=== PATIENT | male | born 1970 | race Caucasian/White ===

== ENCOUNTER 2019-03-19 09:38 | Inpatient (IN) | payer OTHER ==
[2019-03-19 10:42] VITALS: BMI 27.7
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
[2019-03-19] MEDS ORDERED: hydrOXYzine PAMOATE 25 MG CAPSULE (FP) PO PRN (12:10)
[2019-03-19] MEDS ORDERED: MENTHOL/PHENOL 1 EACH UD MM PRN (12:10)
[2019-03-19] MEDS ORDERED: MAG HYDROX/AL HYDROX/SIMETH 30 ML UNIT-DOSE CUP PO PRN (12:10)
[2019-03-19] MEDS ORDERED: MELATONIN 5 MG TABLETS PO PRN (12:10)
[2019-03-19] MEDS ORDERED: ACETAMINOPHEN 325 MG TABLET (FP) PO PRN (12:10)
[2019-03-19] MEDS ORDERED: MAGNESIUM HYDROX 2400MG/30ML ORAL SUSPENSION 30 ML CUP PO PRN (12:10)
[2019-03-19] MEDS ORDERED: MAGNESIUM CITRATE 300 ML BOTTLE PO PRN (12:10)
[2019-03-19] MEDS ORDERED: IBUPROFEN 400 MG TABLET (FP) PO PRN (12:10)
[2019-03-19] MEDS ORDERED: ONDANSETRON *ODT* 4 MG TABLET SL PRN (12:10)
[2019-03-19] MEDS ORDERED: P-EPHED 60MG/TRIPROLIDI 2.5MG TABLET PO PRN (12:10)
[2019-03-19] MEDS ORDERED: DICYCLOMINE HCL 10 MG CAPSULE PO PRN (12:10)
[2019-03-19] MEDS ORDERED: ALBUTEROL SO4 8 GM HFA INHALER IH PRN (12:12)
[2019-03-19] MEDS ORDERED: chlordiazePOXIDE HCL 25 MG CAPSULE PO ONE (12:55)
--- NOTE | 2019-03-19 13:00 | EKG ---
Test Reason : Blood Pressure : / mmHG Vent. Rate : 086 BPM Atrial Rate : 086 BPM P-R Int : 156 ms QRS Dur : 076 ms QT Int : 384 ms P-R-T Axes : 054 034 035 degrees QTc Int : 459 ms NORMAL SINUS RHYTHM NORMAL ECG NO PREVIOUS ECGS AVAILABLE Confirmed by CUONG BURTON, ANH ([id number]) on 03/19/2019 1:00:26 PM Referred By: Confirmed By:ANH HUTCHINS MD
[2019-03-19] MEDS: chlordiazePOXIDE HCL 25 MG CAPSULE PO PRN (15:14)
[2019-03-19] MEDS: chlordiazePOXIDE HCL 25 MG CAPSULE PO SCH ×2 (17:16→22:14)
[2019-03-19 17:34] LABS: HEMATOCRIT 46.3 % (35.4-49); HEMOGLOBIN 15.3 GM/dL (11.7-16.9); MCH 29.7 pg (25.7-33.7); MEAN CELL VOLUME 89.8 fl (80-96); MEAN PLT VOLUME 8.2 fl (7.5-11.1); PLATELET COUNT 308 K/MM3 (134-434); RBC 5.16 M/mm3 (4.00-5.60); RDW 14.4 % (11.9-15.9); WHITE BLOOD COUNT 7.7 K/mm3 (4.0-10.0)
[2019-03-19 17:43] LABS: ALBUMIN 4.2 g/dl (3.4-5.0); BILIRUBIN,TOTAL 0.4 mg/dL (0.2-1); CALCIUM 9.2 mg/dL (8.5-10.1); CREATININE 1.1 mg/dL (0.55-1.3); TOT PROT 7.8 g/dl (6.4-8.2)
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
[2019-03-19] MEDS ORDERED: BUDESONIDE/FORMETEROL FUMARATE 160/4.5 mcg INHALER IH SCH (22:00)
[2019-03-19] MEDS: BUDESONIDE/FORMETEROL FUMARATE 160/4.5 mcg INHALER IH SCH (22:15)
[2019-03-19] MEDS: MONTELUKAST NA 10 MG TABLET PO SCH (22:15)
[2019-03-19] MEDS: QUEtiapine FUMARATE 200 MG TABLET PO SCH (22:15)
[2019-03-19] MEDS: THIAMINE HCL 100 MG TABLET (FP) PO SCH (22:15)
[2019-03-19] MEDS: METHOCARBAMOL 500 MG TABLET PO PRN (22:16)
[2019-03-20] MEDS: chlordiazePOXIDE HCL 25 MG CAPSULE PO SCH ×4 (05:27→22:23)
--- NOTE | 2019-03-20 10:10 | PN ---
[facility] CIWA - CIWA Score Nausea/Vomitin-Mild Nausea/No Vomiting Muscle Tremors: 3 Anxiety: 3 Agitation: 2 Paroxysmal Sweats: 1-Minimal Palms Moist Orientation: 3-Disoriented Date>2 days Tacttile Disturbances: 0-None Auditory Disturbances: 0-None Visual Disturbances: 0-None Headache: 0-None Present CIWA-Ar Total Score: 13 BHS Progress Note (SOAP) Subjective: long history of diabetes treated with metformin 850 mg po doing well denies insulin sq Objective: 03/20/19 10:12 Vital Signs Temperature 97.0 F L 03/20/19 09:04 Pulse Rate 92 H 03/20/19 09:04 Respiratory Rate 20 03/20/19 09:04 Blood Pressure 121/75 03/20/19 09:04 O2 Sat by Pulse Oximetry (%) Laboratory Last Values WBC 7.7 K/mm3 (4.0-10.0) 03/19/19 11:25 RBC 5.16 M/mm3 (4.00-5.60) 03/19/19 11:25 Hgb 15.3 GM/dL (11.7-16.9) 03/19/19 11:25 Hct 46.3 % (35.4-49) 03/19/19 11:25 MCV 89.8 fl (80-96) 03/19/19 11:25 MCH 29.7 pg (25.7-33.7) 03/19/19 11:25 MCHC 33.0 g/dl (32.0-35.9) 03/19/19 11:25 RDW 14.4 % (11.9-15.9) 03/19/19 11:25 Plt Count 308 K/MM3 (134-434) D 03/19/19 11:25 MPV 8.2 fl (7.5-11.1) 03/19/19 11:25 Sodium 139 mmol/L (136-145) 03/19/19 11:25 Potassium 4.0 mmol/L (3.5-5.1) 03/19/19 11:25 Chloride 104 mmol/L (98-107) 03/19/19 11:25 Carbon Dioxide 27 mmol/L (21-32) 03/19/19 11:25 Anion Gap 7 MMOL/L (8-16) L 03/19/19 11:25 BUN 11 mg/dL (7-18) 03/19/19 11:25 Creatinine 1.1 mg/dL (0.55-1.3) 03/19/19 11:25 Est GFR (CKD-EPI)AfAm 90.88 03/19/19 11:25 Est GFR (CKD-EPI)NonAf 78.41 03/19/19 11:25 POC Glucometer 120 UNITS (80-120) 03/20/19 05:27 Random Glucose 94 mg/dL (74-106) 03/19/19 11:25 Calcium 9.2 mg/dL (8.5-10.1) 03/19/19 11:25 Total Bilirubin 0.4 mg/dL (0.2-1) 03/19/19 11:25 AST 34 U/L (15-37) 03/19/19 11:25 ALT 53 U/L (13-61) 03/19/19 11:25 Alkaline Phosphatase 56 U/L (45-117) 03/19/19 11:25 Total Protein 7.8 g/dl (6.4-8.2) 03/19/19 11:25 Albumin 4.2 g/dl (3.4-5.0) 03/19/19 11:25 RPR Titer Nonreactive (NONREACTIVE) 03/19/19 11:25 HIV 1&2 Antibody Screen Negative 03/19/19 11:28 HIV P24 Antigen Negative 03/19/19 11:28 lab noted Assessment: 03/20/19 10:12 alcohol withdrawal sx diabetes II Plan: continue detox
[2019-03-20] MEDS: BUDESONIDE/FORMETEROL FUMARATE 160/4.5 mcg INHALER IH SCH ×2 (10:24→22:22)
[2019-03-20] MEDS: PRENATAL VITAMINS W/ FOLIC ACID TABLET (FP) PO SCH (10:24)
[2019-03-20] MEDS: LISINOPRIL 10 MG TABLET (FP) PO SCH (10:24)
[2019-03-20] MEDS: QUEtiapine FUMARATE 100 MG TABLET (FP) PO SCH (10:24)
[2019-03-20] MEDS: chlordiazePOXIDE HCL 25 MG CAPSULE PO PRN (19:48)
[2019-03-20] MEDS: MONTELUKAST NA 10 MG TABLET PO SCH (22:23)
[2019-03-20] MEDS: THIAMINE HCL 100 MG TABLET (FP) PO SCH (22:23)
[2019-03-20] MEDS: QUEtiapine FUMARATE 200 MG TABLET PO SCH (22:23)
[2019-03-20] MEDS: METHOCARBAMOL 500 MG TABLET PO PRN (23:35)
[2019-03-21] MEDS: chlordiazePOXIDE HCL 25 MG CAPSULE PO SCH ×2 (07:10→10:14)
[2019-03-21] MEDS: METHOCARBAMOL 500 MG TABLET PO PRN (10:10)
[2019-03-21] MEDS: BUDESONIDE/FORMETEROL FUMARATE 160/4.5 mcg INHALER IH SCH ×2 (10:12→22:51)
[2019-03-21] MEDS: QUEtiapine FUMARATE 100 MG TABLET (FP) PO SCH (10:12)
[2019-03-21] MEDS: PRENATAL VITAMINS W/ FOLIC ACID TABLET (FP) PO SCH (10:12)
[2019-03-21] MEDS: LISINOPRIL 10 MG TABLET (FP) PO SCH (10:12)
--- NOTE | 2019-03-21 12:28 | PN ---
S CIWA - CIWA Score Nausea/Vomitin Muscle Tremors: 2 Anxiety: 3 Agitation: 2 Paroxysmal Sweats: 1-Minimal Palms Moist Orientation: 0-Oriented Tacttile Disturbances: 1-Very Mild Itch/Numbness Auditory Disturbances: 1-Very Mild Visual Disturbances: 0-None Headache: 2-Mild CIWA-Ar Total Score: 14 BHS Progress Note (SOAP) Subjective: alert,irritable,anxious,interrupted sleep,tremor,pain in the body and back Objective: 03/21/19 12:27 Vital Signs Temperature 96.7 F L 03/21/19 09:21 Pulse Rate 101 H 03/21/19 09:21 Respiratory Rate 20 03/21/19 09:21 Blood Pressure 120/72 03/21/19 09:21 O2 Sat by Pulse Oximetry (%) Laboratory Last Values WBC 7.7 K/mm3 (4.0-10.0) 03/19/19 11:25 RBC 5.16 M/mm3 (4.00-5.60) 03/19/19 11:25 Hgb 15.3 GM/dL (11.7-16.9) 03/19/19 11:25 Hct 46.3 % (35.4-49) 03/19/19 11:25 MCV 89.8 fl (80-96) 03/19/19 11:25 MCH 29.7 pg (25.7-33.7) 03/19/19 11:25 MCHC 33.0 g/dl (32.0-35.9) 03/19/19 11:25 RDW 14.4 % (11.9-15.9) 03/19/19 11:25 Plt Count 308 K/MM3 (134-434) D 03/19/19 11:25 MPV 8.2 fl (7.5-11.1) 03/19/19 11:25 Sodium 139 mmol/L (136-145) 03/19/19 11:25 Potassium 4.0 mmol/L (3.5-5.1) 03/19/19 11:25 Chloride 104 mmol/L (98-107) 03/19/19 11:25 Carbon Dioxide 27 mmol/L (21-32) 03/19/19 11:25 Anion Gap 7 MMOL/L (8-16) L 03/19/19 11:25 BUN 11 mg/dL (7-18) 03/19/19 11:25 Creatinine 1.1 mg/dL (0.55-1.3) 03/19/19 11:25 Est GFR (CKD-EPI)AfAm 90.88 03/19/19 11:25 Est GFR (CKD-EPI)NonAf 78.41 03/19/19 11:25 POC Glucometer 143 UNITS (80-120) 03/21/19 07:08 Random Glucose 94 mg/dL (74-106) 03/19/19 11:25 Calcium 9.2 mg/dL (8.5-10.1) 03/19/19 11:25 Total Bilirubin 0.4 mg/dL (0.2-1) 03/19/19 11:25 AST 34 U/L (15-37) 03/19/19 11:25 ALT 53 U/L (13-61) 03/19/19 11:25 Alkaline Phosphatase 56 U/L (45-117) 03/19/19 11:25 Total Protein 7.8 g/dl (6.4-8.2) 03/19/19 11:25 Albumin 4.2 g/dl (3.4-5.0) 03/19/19 11:25 RPR Titer Nonreactive (NONREACTIVE) 03/19/19 11:25 HIV 1&2 Antibody Screen Negative 03/19/19 11:28 HIV P24 Antigen Negative 03/19/19 11:28 03/21/19 12:28 bgm 143 Assessment: 03/21/19 12:28 withdrawal symptom Plan: continue detox,bgm monitoring
[2019-03-21] MEDS: chlordiazePOXIDE HCL 10 MG CAPSULE PO SCH ×2 (16:33→22:30)
[2019-03-21] MEDS ORDERED: chlordiazePOXIDE HCL 10 MG CAPSULE PO PRN (17:00)
[2019-03-21] MEDS: ACETAMINOPHEN 325 MG TABLET (FP) PO PRN (19:25)
[2019-03-21] MEDS: QUEtiapine FUMARATE 200 MG TABLET PO SCH (22:30)
[2019-03-21] MEDS: THIAMINE HCL 100 MG TABLET (FP) PO SCH (22:30)
[2019-03-21] MEDS: MONTELUKAST NA 10 MG TABLET PO SCH (22:51)
[2019-03-22] MEDS: chlordiazePOXIDE HCL 10 MG CAPSULE PO SCH ×3 (07:07→17:15)
[2019-03-22] MEDS: PRENATAL VITAMINS W/ FOLIC ACID TABLET (FP) PO SCH (10:22)
[2019-03-22] MEDS: LISINOPRIL 10 MG TABLET (FP) PO SCH (10:22)
[2019-03-22] MEDS: BUDESONIDE/FORMETEROL FUMARATE 160/4.5 mcg INHALER IH SCH ×2 (10:22→22:52)
[2019-03-22] MEDS: QUEtiapine FUMARATE 100 MG TABLET (FP) PO SCH (10:22)
--- NOTE | 2019-03-22 16:08 | PN ---
S CIWA - CIWA Score Nausea/Vomitin-No Nausea/No Vomiting Muscle Tremors: None Anxiety: 3 Agitation: 2 Paroxysmal Sweats: 2 Orientation: 2-Disoriented Date<2 days Tacttile Disturbances: 1-Very Mild Itch/Numbness Auditory Disturbances: 1-Very Mild Visual Disturbances: 0-None Headache: 0-None Present CIWA-Ar Total Score: 11 BHS Progress Note (SOAP) Subjective: Sweating, Anxious, Interrupted sleep. Objective: PATIENT A & O X 2 (UNCERTAIN ABOUT CURRENT DAY / DATE). PATIENT OBSERVED AMBULATING ON UNIT UNASSISTED. IN NO ACUTE DISTRESS. 03/22/19 16:08 Vital Signs Temperature 97.7 F 03/22/19 15:51 Pulse Rate 119 H 03/22/19 15:51 Respiratory Rate 18 03/22/19 15:51 Blood Pressure 121/81 03/22/19 15:51 O2 Sat by Pulse Oximetry (%) Laboratory Tests 03/19/19 03/19/19 03/19/19 11:25 11:25 11:25 WBC 7.7 RBC 5.16 Hgb 15.3 Hct 46.3 MCV 89.8 MCH 29.7 MCHC 33.0 RDW 14.4 Plt Count 308 D MPV 8.2 Sodium 139 Potassium 4.0 Chloride 104 Carbon Dioxide 27 Anion Gap 7 L BUN 11 Creatinine 1.1 Est GFR (CKD-EPI)AfAm 90.88 Est GFR (CKD-EPI)NonAf 78.41 POC Glucometer Random Glucose 94 Calcium 9.2 Total Bilirubin 0.4 AST 34 ALT 53 Alkaline Phosphatase 56 Total Protein 7.8 Albumin 4.2 RPR Titer Nonreactive HIV 1&2 Antibody Screen HIV P24 Antigen 03/19/19 03/19/19 03/19/19 11:28 12:10 16:34 WBC RBC Hgb Hct MCV MCH MCHC RDW Plt Count MPV Sodium Potassium Chloride Carbon Dioxide Anion Gap BUN Creatinine Est GFR (CKD-EPI)AfAm Est GFR (CKD-EPI)NonAf POC Glucometer 134 123 Random Glucose Calcium Total Bilirubin AST ALT Alkaline Phosphatase Total Protein Albumin RPR Titer HIV 1&2 Antibody Screen Negative HIV P24 Antigen Negative 03/20/19 03/20/19 03/21/19 05:27 16:30 07:08 WBC RBC Hgb Hct MCV MCH MCHC RDW Plt Count MPV Sodium Potassium Chloride Carbon Dioxide Anion Gap BUN Creatinine Est GFR (CKD-EPI)AfAm Est GFR (CKD-EPI)NonAf POC Glucometer 120 153 143 Random Glucose Calcium Total Bilirubin AST ALT Alkaline Phosphatase Total Protein Albumin RPR Titer HIV 1&2 Antibody Screen HIV P24 Antigen 03/21/19 03/21/19 03/21/19 16:21 19:28 23:08 WBC RBC Hgb Hct MCV MCH MCHC RDW Plt Count MPV Sodium Potassium Chloride Carbon Dioxide Anion Gap BUN Creatinine Est GFR (CKD-EPI)AfAm Est GFR (CKD-EPI)NonAf POC Glucometer 227 228 244 Random Glucose Calcium Total Bilirubin AST ALT Alkaline Phosphatase Total Protein Albumin RPR Titer HIV 1&2 Antibody Screen HIV P24 Antigen LABS NOTED. Assessment: 03/22/19 16:10 WITHDRAWAL SYMPTOMS. Plan: CONTINUE DETOX. INCREASE DAILY PO FLUID INTAKE.
[2019-03-22] MEDS: METHOCARBAMOL 500 MG TABLET PO PRN (17:15)
[2019-03-22] MEDS: ACETAMINOPHEN 325 MG TABLET (FP) PO PRN (17:18)
[2019-03-22] MEDS: BISMUTH SUBSALICYLATE 262 MG/15 ML BTL PO PRN (19:22)
[2019-03-22] MEDS: MONTELUKAST NA 10 MG TABLET PO SCH (22:52)
[2019-03-22] MEDS: QUEtiapine FUMARATE 200 MG TABLET PO SCH (22:52)
[2019-03-22] MEDS: THIAMINE HCL 100 MG TABLET (FP) PO SCH (22:52)
[2019-03-23] MEDS: chlordiazePOXIDE HCL 10 MG CAPSULE PO SCH ×2 (06:33→18:07)
[2019-03-23] MEDS: BUDESONIDE/FORMETEROL FUMARATE 160/4.5 mcg INHALER IH SCH ×2 (10:15→22:18)
[2019-03-23] MEDS: PRENATAL VITAMINS W/ FOLIC ACID TABLET (FP) PO SCH (10:15)
[2019-03-23] MEDS: LISINOPRIL 10 MG TABLET (FP) PO SCH (10:17)
[2019-03-23] MEDS: QUEtiapine FUMARATE 100 MG TABLET (FP) PO SCH (10:17)
--- NOTE | 2019-03-23 16:04 | PN ---
S CIWA - CIWA Score Nausea/Vomitin-Mild Nausea/No Vomiting Muscle Tremors: 2 Anxiety: 1-Mildly Anxious Agitation: 1-Slight > Activity Paroxysmal Sweats: No Perspiration Orientation: 0-Oriented Tacttile Disturbances: 0-None Auditory Disturbances: 0-None Visual Disturbances: 0-None Headache: 1-Very Mild CIWA-Ar Total Score: 6 BHS Progress Note (SOAP) Subjective: diabetes diagnosted since 11/2018 treated with metformin discuss dietary regimen and medication adherence as well as weight loss Objective: 03/23/19 16:02 Vital Signs Temperature 96.9 F L 03/23/19 10:00 Pulse Rate 101 H 03/23/19 10:00 Respiratory Rate 20 03/23/19 10:00 Blood Pressure 121/86 03/23/19 10:00 O2 Sat by Pulse Oximetry (%) Laboratory Last Values WBC 7.7 K/mm3 (4.0-10.0) 03/19/19 11:25 RBC 5.16 M/mm3 (4.00-5.60) 03/19/19 11:25 Hgb 15.3 GM/dL (11.7-16.9) 03/19/19 11:25 Hct 46.3 % (35.4-49) 03/19/19 11:25 MCV 89.8 fl (80-96) 03/19/19 11:25 MCH 29.7 pg (25.7-33.7) 03/19/19 11:25 MCHC 33.0 g/dl (32.0-35.9) 03/19/19 11:25 RDW 14.4 % (11.9-15.9) 03/19/19 11:25 Plt Count 308 K/MM3 (134-434) D 03/19/19 11:25 MPV 8.2 fl (7.5-11.1) 03/19/19 11:25 Sodium 139 mmol/L (136-145) 03/19/19 11:25 Potassium 4.0 mmol/L (3.5-5.1) 03/19/19 11:25 Chloride 104 mmol/L (98-107) 03/19/19 11:25 Carbon Dioxide 27 mmol/L (21-32) 03/19/19 11:25 Anion Gap 7 MMOL/L (8-16) L 03/19/19 11:25 BUN 11 mg/dL (7-18) 03/19/19 11:25 Creatinine 1.1 mg/dL (0.55-1.3) 03/19/19 11:25 Est GFR (CKD-EPI)AfAm 90.88 03/19/19 11:25 Est GFR (CKD-EPI)NonAf 78.41 03/19/19 11:25 POC Glucometer 248 UNITS (80-120) 03/23/19 07:08 Random Glucose 94 mg/dL (74-106) 03/19/19 11:25 Calcium 9.2 mg/dL (8.5-10.1) 03/19/19 11:25 Total Bilirubin 0.4 mg/dL (0.2-1) 03/19/19 11:25 AST 34 U/L (15-37) 03/19/19 11:25 ALT 53 U/L (13-61) 03/19/19 11:25 Alkaline Phosphatase 56 U/L (45-117) 03/19/19 11:25 Total Protein 7.8 g/dl (6.4-8.2) 03/19/19 11:25 Albumin 4.2 g/dl (3.4-5.0) 03/19/19 11:25 RPR Titer Nonreactive (NONREACTIVE) 03/19/19 11:25 HIV 1&2 Antibody Screen Negative 03/19/19 11:28 HIV P24 Antigen Negative 03/19/19 11:28 lab noted patient wants to follow up with his primary care provider for diabetes aftercare that "he found out I have diabetes" patient has good relationship with his primary care provider "many years" Assessment: 03/23/19 16:03 withdrawal sx discuss alcohol related liver insult and serum glucose elevation Plan: continue detox
[2019-03-23] MEDS: THIAMINE HCL 100 MG TABLET (FP) PO SCH (22:16)
[2019-03-23] MEDS: MONTELUKAST NA 10 MG TABLET PO SCH (22:16)
[2019-03-23] MEDS: QUEtiapine FUMARATE 200 MG TABLET PO SCH (22:16)
[2019-03-24] MEDS: BISMUTH SUBSALICYLATE 262 MG/15 ML BTL PO PRN (05:27)
[2019-03-24 09:11] VITALS: BP 119/85; PULSE 110; TEMP 97.6
[2019-03-24] MEDS: PRENATAL VITAMINS W/ FOLIC ACID TABLET (FP) PO SCH (10:27)
[2019-03-24] MEDS: LISINOPRIL 10 MG TABLET (FP) PO SCH (10:27)
[2019-03-24] MEDS: BUDESONIDE/FORMETEROL FUMARATE 160/4.5 mcg INHALER IH SCH (10:27)
[2019-03-24] MEDS: QUEtiapine FUMARATE 100 MG TABLET (FP) PO SCH (10:27)
--- NOTE | 2019-03-24 15:12 | DS ---
[facility] Detox Discharge Summary Admission Date: 03/19/19 Discharge Date: 03/24/19 - History Present History: Alcohol Dependence Additional Comments: 48 years old male admitted on 03/19/19 for alcohol withdrawal stabilization completed detox regimen [facility] Pertinent Past History: bring in medication list and lab report to aftercare appointment - Physical Exam Results Vital Signs: Vital Signs Temperature 97.6 F 03/24/19 09:10 Pulse Rate 110 H 03/24/19 09:10 Respiratory Rate 18 03/24/19 09:10 Blood Pressure 119/85 03/24/19 09:10 O2 Sat by Pulse Oximetry (%) Pertinent Admission Physical Exam Findings: alcohol withdrawal sx Laboratory 03/19/19 03/19/19 03/19/19 11:25 11:25 11:25 WBC 7.7 K/mm3 K/mm3 (4.0-10.0) RBC 5.16 M/mm3 M/mm3 (4.00-5.60) Hgb 15.3 GM/dL GM/dL (11.7-16.9) Hct 46.3 % % (35.4-49) MCV 89.8 fl fl (80-96) MCH 29.7 pg pg (25.7-33.7) MCHC 33.0 g/dl g/dl (32.0-35.9) RDW 14.4 % % (11.9-15.9) Plt Count 308 K/MM3 D K/MM3 (134-434) MPV 8.2 fl fl (7.5-11.1) Sodium 139 mmol/L mmol/L (136-145) Potassium 4.0 mmol/L mmol/L (3.5-5.1) Chloride 104 mmol/L mmol/L (98-107) Carbon Dioxide 27 mmol/L mmol/L (21-32) Anion Gap 7 MMOL/L L MMOL/L (8-16) BUN 11 mg/dL mg/dL (7-18) Creatinine 1.1 mg/dL mg/dL (0.55-1.3) Est GFR (CKD-EPI)AfAm 90.88 Est GFR (CKD-EPI)NonAf 78.41 POC Glucometer Random Glucose 94 mg/dL mg/dL (74-106) Calcium 9.2 mg/dL mg/dL (8.5-10.1) Total Bilirubin 0.4 mg/dL mg/dL (0.2-1) AST 34 U/L U/L (15-37) ALT 53 U/L U/L (13-61) Alkaline Phosphatase 56 U/L U/L (45-117) Total Protein 7.8 g/dl g/dl (6.4-8.2) Albumin 4.2 g/dl g/dl (3.4-5.0) RPR Titer Nonreactive (NONREACTIVE) HIV 1&2 Antibody Screen HIV P24 Antigen 03/19/19 03/19/19 03/19/19 11:28 12:10 16:34 WBC RBC Hgb Hct MCV MCH MCHC RDW Plt Count MPV Sodium Potassium Chloride Carbon Dioxide Anion Gap BUN Creatinine Est GFR (CKD-EPI)AfAm Est GFR (CKD-EPI)NonAf POC Glucometer 134 UNITS UNITS 123 UNITS UNITS (80-120) (80-120) Random Glucose Calcium Total Bilirubin AST ALT Alkaline Phosphatase Total Protein Albumin RPR Titer HIV 1&2 Antibody Screen Negative HIV P24 Antigen Negative 03/20/19 03/20/19 03/21/19 05:27 16:30 07:08 WBC RBC Hgb Hct MCV MCH MCHC RDW Plt Count MPV Sodium Potassium Chloride Carbon Dioxide Anion Gap BUN Creatinine Est GFR (CKD-EPI)AfAm Est GFR (CKD-EPI)NonAf POC Glucometer 120 UNITS UNITS 153 UNITS UNITS 143 UNITS UNITS (80-120) (80-120) (80-120) Random Glucose Calcium Total Bilirubin AST ALT Alkaline Phosphatase Total Protein Albumin RPR Titer HIV 1&2 Antibody Screen HIV P24 Antigen 03/21/19 03/21/19 03/21/19 16:21 19:28 23:08 WBC RBC Hgb Hct MCV MCH MCHC RDW Plt Count MPV Sodium Potassium Chloride Carbon Dioxide Anion Gap BUN Creatinine Est GFR (CKD-EPI)AfAm Est GFR (CKD-EPI)NonAf POC Glucometer 227 UNITS UNITS 228 UNITS UNITS 244 UNITS UNITS (80-120) (80-120) (80-120) Random Glucose Calcium Total Bilirubin AST ALT Alkaline Phosphatase Total Protein Albumin RPR Titer HIV 1&2 Antibody Screen HIV P24 Antigen 03/22/19 03/23/19 03/23/19 16:33 07:08 16:39 WBC RBC Hgb Hct MCV MCH MCHC RDW Plt Count MPV Sodium Potassium Chloride Carbon Dioxide Anion Gap BUN Creatinine Est GFR (CKD-EPI)AfAm Est GFR (CKD-EPI)NonAf POC Glucometer 361 UNITS UNITS 248 UNITS UNITS 355 UNITS UNITS (80-120) (80-120) (80-120) Random Glucose Calcium Total Bilirubin AST ALT Alkaline Phosphatase Total Protein Albumin RPR Titer HIV 1&2 Antibody Screen HIV P24 Antigen 03/24/19 05:25 WBC RBC Hgb Hct MCV MCH MCHC RDW Plt Count MPV Sodium Potassium Chloride Carbon Dioxide Anion Gap BUN Creatinine Est GFR (CKD-EPI)AfAm Est GFR (CKD-EPI)NonAf POC Glucometer 177 UNITS UNITS (80-120) Random Glucose Calcium Total Bilirubin AST ALT Alkaline Phosphatase Total Protein Albumin RPR Titer HIV 1&2 Antibody Screen HIV P24 Antigen Laboratory Last Values WBC 7.7 K/mm3 (4.0-10.0) 03/19/19 11:25 RBC 5.16 M/mm3 (4.00-5.60) 03/19/19 11:25 Hgb 15.3 GM/dL (11.7-16.9) 03/19/19 11:25 Hct 46.3 % (35.4-49) 03/19/19 11:25 MCV 89.8 fl (80-96) 03/19/19 11:25 MCH 29.7 pg (25.7-33.7) 03/19/19 11:25 MCHC 33.0 g/dl (32.0-35.9) 03/19/19 11:25 RDW 14.4 % (11.9-15.9) 03/19/19 11:25 Plt Count 308 K/MM3 (134-434) D 03/19/19 11:25 MPV 8.2 fl (7.5-11.1) 03/19/19 11:25 Sodium 139 mmol/L (136-145) 03/19/19 11:25 Potassium 4.0 mmol/L (3.5-5.1) 03/19/19 11:25 Chloride 104 mmol/L (98-107) 03/19/19 11:25 Carbon Dioxide 27 mmol/L (21-32) 03/19/19 11:25 Anion Gap 7 MMOL/L (8-16) L 03/19/19 11:25 BUN 11 mg/dL (7-18) 03/19/19 11:25 Creatinine 1.1 mg/dL (0.55-1.3) 03/19/19 11:25 Est GFR (CKD-EPI)AfAm 90.88 03/19/19 11:25 Est GFR (CKD-EPI)NonAf 78.41 03/19/19 11:25 POC Glucometer 177 UNITS (80-120) 03/24/19 05:25 Random Glucose 94 mg/dL (74-106) 03/19/19 11:25 Calcium 9.2 mg/dL (8.5-10.1) 03/19/19 11:25 Total Bilirubin 0.4 mg/dL (0.2-1) 03/19/19 11:25 AST 34 U/L (15-37) 03/19/19 11:25 ALT 53 U/L (13-61) 03/19/19 11:25 Alkaline Phosphatase 56 U/L (45-117) 03/19/19 11:25 Total Protein 7.8 g/dl (6.4-8.2) 03/19/19 11:25 Albumin 4.2 g/dl (3.4-5.0) 03/19/19 11:25 RPR Titer Nonreactive (NONREACTIVE) 03/19/19 11:25 HIV 1&2 Antibody Screen Negative 03/19/19 11:28 HIV P24 Antigen Negative 03/19/19 11:28 lab noted - Treatment Hospital Course: Detox Protocol Followed, Detoxed Safely, Responded well, Discharged Condition Good, Rehab Referral Accepted Patient has Accepted a [facility] Referral to: [facility] - Medication Discharge Medications: Ambulatory Orders Quetiapine Fumarate [Seroquel -] 300 mg PO BID #60 tablet 07/24/16 Albuterol Sulfate Inhaler - [Ventolin HFA Inhaler -] 2 inh IH Q4H PRN #1 inhaler 03/23/19 Budesonide/Formeterol Fumarate [SYMBICORT 160/4.5mcg -] 1 puff IH BID #1 inhaler 03/23/19 Lisinopril [Prinivil] 10 mg PO DAILY #30 tablet 03/23/19 Montelukast Na [Singulair -] 10 mg PO HS #30 tablet 03/23/19 metFORMIN HCL [Glucophage -] 850 mg PO BID #60 tablet 03/23/19 SYMBICORT 160/4.5mcg - 1 puff IN BID 03/24/19 - Diagnosis (1) Diabetes mellitus type II, controlled Status: Chronic Qualifiers: Diabetes mellitus longterm insulin use: without longterm use Diabetes mellitus complication status: with unspecified complications Qualified Code(s) : E11.8 - Type 2 diabetes mellitus with unspecified complications (2) Alcohol dependence with uncomplicated withdrawal Status: Acute (3) Asthma Status: Chronic Qualifiers: Asthma severity: mild Asthma complication type: uncomplicated (4) HTN (hypertension) Status: Chronic Qualifiers: Hypertension type: essential hypertension Qualified Code(s): I10 - Essential (primary) hypertension (5) Substance induced mood disorder Status: Suspected - AMA Did Patient Leave Against Medical Advice: No
== END 2019-03-24 12:18 | disposition other institution (70) | DRG 774 ==
LOC: YASAS 09:38 → Y3N 12:15
PROVIDERS: ADMIT Surgery; ATTEND Surgery
PROC: HZ2ZZZZ Detoxification Services for Substance Abuse Treatment (ICD-10-PCS; principal; 2019-03-19)
DX: F10.230 Alcohol dependence with withdrawal, uncomplicated (principal); F14.20 Cocaine dependence, uncomplicated; F19.24 Other psychoactive substance dependence with psychoactive substance-induced mood disorder; F31.9 Bipolar disorder, unspecified; I10 Essential (primary) hypertension; J45.909 Unspecified asthma, uncomplicated; E11.8 Type 2 diabetes mellitus with unspecified complications; G47.00 Insomnia, unspecified; B18.2 Chronic viral hepatitis C
CPT/HCPCS: 36415; 71046-TC-FY; 80053; 82962; 85027; 86593; 87389; 93005; 93010

== ENCOUNTER 2019-03-24 12:32 | Inpatient (IN) | payer OTHER ==
[2019-03-24] MEDS ORDERED: MENTHOL/PHENOL 1 EACH UD MM PRN (14:58)
[2019-03-24] MEDS ORDERED: guaiFENesin 200 MG/10 ML 10 ML UNIT-DOSE CUPS PO PRN (14:58)
[2019-03-24] MEDS ORDERED: ACETAMINOPHEN 325 MG TABLET (FP) PO PRN (14:58)
[2019-03-24] MEDS ORDERED: MAGNESIUM CITRATE 300 ML BOTTLE PO PRN (14:58)
[2019-03-24] MEDS ORDERED: MAGNESIUM HYDROX 2400MG/30ML ORAL SUSPENSION 30 ML CUP PO PRN (14:58)
[2019-03-24] MEDS ORDERED: LOPERAMIDE HCL 2 MG CAPSULE PO PRN (14:58)
[2019-03-24] MEDS ORDERED: MAG HYDROX/AL HYDROX/SIMETH 30 ML UNIT-DOSE CUP PO PRN (14:58)
--- NOTE | 2019-03-24 14:58 | HP ---
[facility] Rehab Assess/Revision - Admission History Admitted to Rehab from: [facility] Date of Admission to Rehab: 03/24/19 - Vital signs Vital Signs: Vital Signs Period Temp Pulse Resp BP Sys/Nguyen Pulse Ox Last 24 Hr 97.0 F 81 18 123/70 - Findings Detox History & Physical reviewed: Yes Concur with findings: Yes Comments/Additional Findings: transferred from detox to rehab admission as per protocol Inpatient Rehab Admission - Rehab Decision to Admit Inpatient rehab admission?: Yes - Initial Determination Are CD services needed?: Yes Free of communicable disease: Yes Not in need of hospitalization: Yes - Rehab Admission Criteria Previous failed treatment: Yes Poor recovery environment: Yes Comorbidities: Yes Lacks judgement: No Patient is meeting Inpatient Rehab admission criteria:: Yes
[2019-03-24] MEDS ORDERED: NICOTINE POLACRILEX 2 MG GUM BUC PRN (14:59)
[2019-03-24] MEDS ORDERED: NICOTINE 14 MG/24 HOURS TOPICAL PATCH TD PRN (14:59)
[2019-03-24] MEDS: PANTOPRAZOLE 20 MG TABLET (FP) PO SCH (18:56)
[2019-03-24] MEDS: THIAMINE HCL 100 MG TABLET (FP) PO SCH (21:33)
[2019-03-24] MEDS: MONTELUKAST NA 10 MG TABLET PO SCH (21:34)
[2019-03-24] MEDS: MELATONIN 5 MG TABLETS PO PRN (21:35)
[2019-03-24] MEDS: BUDESONIDE/FORMETEROL FUMARATE 160/4.5 mcg INHALER IH SCH (21:56)
[2019-03-24] MEDS ORDERED: SYMBICORT IN SCH (22:00)
[2019-03-24] MEDS ORDERED: QUEtiapine FUMARATE 200 MG TABLET PO SCH (22:00)
[2019-03-25] MEDS: INSULIN SLIDING SCALE (NOVOLOG) 1 VIAL SQ SCH ×2 (06:58→16:51)
[2019-03-25] MEDS: LISINOPRIL 10 MG TABLET (FP) PO SCH (09:58)
[2019-03-25] MEDS: PRENATAL VITAMINS W/ FOLIC ACID TABLET (FP) PO SCH (09:58)
[2019-03-25] MEDS: BUDESONIDE/FORMETEROL FUMARATE 160/4.5 mcg INHALER IH SCH ×2 (09:58→21:09)
[2019-03-25] MEDS: PANTOPRAZOLE 20 MG TABLET (FP) PO SCH (09:58)
[2019-03-25] MEDS ORDERED: QUEtiapine FUMARATE 100 MG TABLET (FP) PO SCH (10:00)
--- NOTE | 2019-03-25 14:59 | PN ---
[facility] Progress Note Note: Patient was seen by Dr Siegel on 03/19/19 while in detox and he was prescribed Seroquel 100 mg/day& 200 mg/hs . Prior to admission to detox, he was on Seroquel 300 mg/hs and Xanax. Seroquel 300 mg po HS is ordered for patient
[2019-03-25] MEDS: ALBUTEROL SO4 8 GM HFA INHALER IH PRN (17:47)
[2019-03-25] MEDS: MONTELUKAST NA 10 MG TABLET PO SCH (21:09)
[2019-03-25] MEDS: THIAMINE HCL 100 MG TABLET (FP) PO SCH (21:09)
[2019-03-25] MEDS: QUEtiapine FUMARATE 300 MG TABLET PO SCH (21:10)
[2019-03-26] MEDS: INSULIN SLIDING SCALE (NOVOLOG) 1 VIAL SQ SCH ×2 (07:11→16:44)
[2019-03-26] MEDS: PRENATAL VITAMINS W/ FOLIC ACID TABLET (FP) PO SCH (09:34)
[2019-03-26] MEDS: PANTOPRAZOLE 20 MG TABLET (FP) PO SCH (09:35)
[2019-03-26] MEDS: LISINOPRIL 10 MG TABLET (FP) PO SCH (09:35)
[2019-03-26] MEDS: BUDESONIDE/FORMETEROL FUMARATE 160/4.5 mcg INHALER IH SCH ×2 (09:35→22:19)
[2019-03-26] MEDS ORDERED: PT OWN MED DRAWER 7, Y5N ONE (09:36)
[2019-03-26] MEDS: ALBUTEROL SO4 8 GM HFA INHALER IH PRN (17:53)
[2019-03-26] MEDS: MONTELUKAST NA 10 MG TABLET PO SCH (21:26)
[2019-03-26] MEDS: THIAMINE HCL 100 MG TABLET (FP) PO SCH (21:26)
[2019-03-26] MEDS: QUEtiapine FUMARATE 300 MG TABLET PO SCH (21:27)
[2019-03-26] MEDS: MELATONIN 5 MG TABLETS PO PRN (21:29)
[2019-03-27] MEDS: INSULIN SLIDING SCALE (NOVOLOG) 1 VIAL SQ SCH ×2 (06:15→16:48)
[2019-03-27] MEDS: BUDESONIDE/FORMETEROL FUMARATE 160/4.5 mcg INHALER IH SCH ×2 (09:45→21:06)
[2019-03-27] MEDS: PRENATAL VITAMINS W/ FOLIC ACID TABLET (FP) PO SCH (09:45)
[2019-03-27] MEDS: LISINOPRIL 10 MG TABLET (FP) PO SCH (09:45)
[2019-03-27] MEDS: PANTOPRAZOLE 20 MG TABLET (FP) PO SCH (09:46)
[2019-03-27] MEDS: THIAMINE HCL 100 MG TABLET (FP) PO SCH (21:05)
[2019-03-27] MEDS: QUEtiapine FUMARATE 300 MG TABLET PO SCH (21:05)
[2019-03-27] MEDS: MONTELUKAST NA 10 MG TABLET PO SCH (21:05)
[2019-03-27] MEDS: ALBUTEROL SO4 8 GM HFA INHALER IH PRN (21:06)
[2019-03-27] MEDS: MELATONIN 5 MG TABLETS PO PRN (21:06)
[2019-03-28] MEDS: INSULIN SLIDING SCALE (NOVOLOG) 1 VIAL SQ SCH ×2 (06:43→16:36)
[2019-03-28] MEDS: PANTOPRAZOLE 20 MG TABLET (FP) PO SCH (09:55)
[2019-03-28] MEDS: PRENATAL VITAMINS W/ FOLIC ACID TABLET (FP) PO SCH (09:55)
[2019-03-28] MEDS: LISINOPRIL 10 MG TABLET (FP) PO SCH (09:55)
[2019-03-28] MEDS: BUDESONIDE/FORMETEROL FUMARATE 160/4.5 mcg INHALER IH SCH ×2 (09:56→21:37)
--- NOTE | 2019-03-28 12:32 | PN ---
[facility] Progress Note Note: Patient requested to have Metformin increased to 1000mg as oppose to regular 850mg dose. Patient denies symptoms of hyperglycemia: nausea, dry mouth, headache, increased urination, and increased hunger. Laboratory Tests 03/24/19 03/25/19 03/25/19 16:45 06:39 16:50 POC Glucometer 313 161 312 03/26/19 03/26/19 03/27/19 05:57 16:42 05:51 POC Glucometer 203 254 199 03/27/19 03/28/19 16:47 06:24 POC Glucometer 277 192 Vital Signs Temperature 97.8 F 03/28/19 07:16 Pulse Rate 105 H 03/28/19 10:00 Respiratory Rate 18 03/28/19 10:00 Blood Pressure 126/79 03/28/19 10:00 O2 Sat by Pulse Oximetry (%) Last CMP while in detox shows GFR at 58. Patient informed of renal side effects from metformin and agreed with recommendation to continue same dose of 850mg and not increase to 1000mg. Will continue to monitor bgm and if hyperglycemia occurs consisitently, will consider alternative treatment.
[2019-03-28] MEDS: MELATONIN 5 MG TABLETS PO PRN (21:36)
[2019-03-28] MEDS: MONTELUKAST NA 10 MG TABLET PO SCH (21:36)
[2019-03-28] MEDS: THIAMINE HCL 100 MG TABLET (FP) PO SCH (21:36)
[2019-03-28] MEDS: QUEtiapine FUMARATE 300 MG TABLET PO SCH (21:36)
[2019-03-29] MEDS: IBUPROFEN 400 MG TABLET (FP) PO PRN (06:03)
[2019-03-29] MEDS: INSULIN SLIDING SCALE (NOVOLOG) 1 VIAL SQ SCH ×2 (06:05→16:53)
[2019-03-29] MEDS: LISINOPRIL 10 MG TABLET (FP) PO SCH (09:30)
[2019-03-29] MEDS: PANTOPRAZOLE 20 MG TABLET (FP) PO SCH (09:30)
[2019-03-29] MEDS: PRENATAL VITAMINS W/ FOLIC ACID TABLET (FP) PO SCH (09:30)
[2019-03-29] MEDS: BUDESONIDE/FORMETEROL FUMARATE 160/4.5 mcg INHALER IH SCH ×2 (09:30→21:08)
[2019-03-29] MEDS: QUEtiapine FUMARATE 300 MG TABLET PO SCH (21:07)
[2019-03-29] MEDS: MELATONIN 5 MG TABLETS PO PRN (21:07)
[2019-03-29] MEDS: THIAMINE HCL 100 MG TABLET (FP) PO SCH (21:07)
[2019-03-29] MEDS: MONTELUKAST NA 10 MG TABLET PO SCH (21:07)
[2019-03-30] MEDS: INSULIN SLIDING SCALE (NOVOLOG) 1 VIAL SQ SCH ×2 (06:42→16:53)
[2019-03-30] MEDS: LISINOPRIL 10 MG TABLET (FP) PO SCH (09:35)
[2019-03-30] MEDS: BUDESONIDE/FORMETEROL FUMARATE 160/4.5 mcg INHALER IH SCH ×2 (09:35→21:48)
[2019-03-30] MEDS: PRENATAL VITAMINS W/ FOLIC ACID TABLET (FP) PO SCH (09:35)
[2019-03-30] MEDS: PANTOPRAZOLE 20 MG TABLET (FP) PO SCH (09:35)
[2019-03-30] MEDS: THIAMINE HCL 100 MG TABLET (FP) PO SCH (21:48)
[2019-03-30] MEDS: QUEtiapine FUMARATE 300 MG TABLET PO SCH (21:49)
[2019-03-30] MEDS: MONTELUKAST NA 10 MG TABLET PO SCH (21:49)
[2019-03-31] MEDS: INSULIN SLIDING SCALE (NOVOLOG) 1 VIAL SQ SCH ×2 (07:33→16:50)
[2019-03-31] MEDS: PRENATAL VITAMINS W/ FOLIC ACID TABLET (FP) PO SCH (09:47)
[2019-03-31] MEDS: LISINOPRIL 10 MG TABLET (FP) PO SCH (09:47)
[2019-03-31] MEDS: PANTOPRAZOLE 20 MG TABLET (FP) PO SCH (09:47)
[2019-03-31] MEDS: ALBUTEROL SO4 8 GM HFA INHALER IH PRN (09:48)
[2019-03-31] MEDS: BUDESONIDE/FORMETEROL FUMARATE 160/4.5 mcg INHALER IH SCH ×2 (09:48→21:57)
--- NOTE | 2019-03-31 19:00 | PN ---
[facility] Progress Note Note: Pt with uncontrolled crying and anxiety this evening. Pt has been on xanax 6mg/ day and ambien. has been getting Zanax for several months. Will start Vistaril 50mg BID and also Klonopin 0.5 mg BID Prn as pt may be having anxiety related to sudden withdrawal of Benzo. Others' Prescriptions Patient Name: Curt Schneider Date: 1970 Address: [address] [place] [address] Sex: Male Rx Written Rx Dispensed Drug Quantity Days Supply Prescriber Name 03/11/2019 03/11/2019 alprazolam 2 mg tablet 90 30 LondonoToro solano MD 03/11/2019 03/11/2019 zolpidem tartrate 10 mg tablet 30 30 LondonoJeff solano MD 01/27/2019 01/28/2019 zolpidem tartrate 10 mg tablet 30 30 LondonoJeff solano MD 01/27/2019 01/28/2019 alprazolam 2 mg tablet 90 30 LondonoToro solano MD 12/30/2018 12/30/2018 zolpidem tartrate 10 mg tablet 30 30 LondonoJeff solano MD 12/30/2018 12/30/2018 alprazolam 2 mg tablet 90 30 LondonoToro solano MD 11/29/2018 11/29/2018 alprazolam 2 mg tablet 90 30 LondonoToro solano MD 11/29/2018 11/29/2018 zolpidem tartrate 10 mg tablet 30 30 Jeff Londono MD 10/30/2018 10/30/2018 zolpidem tartrate 10 mg tablet 30 30 Jeff Londono MD 10/30/2018 10/30/2018 alprazolam 2 mg tablet 90 30 Toro Londono MD 09/30/2018 09/30/2018 alprazolam 2 mg tablet 90 30 Toro Londono MD
[2019-03-31] MEDS ORDERED: clonazePAM 0.5 MG TABLET PO PRN (19:02)
[2019-03-31] MEDS: hydrOXYzine PAMOATE 50 MG CAPSULE (FP) PO PRN (19:16)
[2019-03-31] MEDS: MONTELUKAST NA 10 MG TABLET PO SCH (21:57)
[2019-03-31] MEDS: QUEtiapine FUMARATE 300 MG TABLET PO SCH (21:57)
[2019-03-31] MEDS: THIAMINE HCL 100 MG TABLET (FP) PO SCH (21:57)
[2019-04-01] MEDS: INSULIN SLIDING SCALE (NOVOLOG) 1 VIAL SQ SCH ×2 (07:05→16:46)
[2019-04-01] MEDS: LISINOPRIL 10 MG TABLET (FP) PO SCH (10:35)
[2019-04-01] MEDS: PRENATAL VITAMINS W/ FOLIC ACID TABLET (FP) PO SCH (10:35)
[2019-04-01] MEDS: BUDESONIDE/FORMETEROL FUMARATE 160/4.5 mcg INHALER IH SCH ×2 (10:36→22:05)
[2019-04-01] MEDS: ALBUTEROL SO4 8 GM HFA INHALER IH PRN ×2 (10:36→22:06)
[2019-04-01] MEDS: PANTOPRAZOLE 20 MG TABLET (FP) PO SCH (10:57)
[2019-04-01] MEDS: hydrOXYzine PAMOATE 50 MG CAPSULE (FP) PO PRN (22:04)
[2019-04-01] MEDS: THIAMINE HCL 100 MG TABLET (FP) PO SCH (22:04)
[2019-04-01] MEDS ORDERED: PT OWN MED DRAWER 7, Y5N ONE (22:05)
[2019-04-01] MEDS: MONTELUKAST NA 10 MG TABLET PO SCH (22:06)
[2019-04-01] MEDS: QUEtiapine FUMARATE 300 MG TABLET PO SCH (22:06)
[2019-04-02] MEDS ORDERED: PT OWN MED DRAWER 7, Y5N ONE ×2 (06:43→09:47)
[2019-04-02] MEDS: ALBUTEROL SO4 8 GM HFA INHALER IH PRN ×2 (06:44→21:57)
[2019-04-02] MEDS: INSULIN SLIDING SCALE (NOVOLOG) 1 VIAL SQ SCH ×2 (07:01→16:51)
[2019-04-02] MEDS: LISINOPRIL 10 MG TABLET (FP) PO SCH (09:47)
[2019-04-02] MEDS: PANTOPRAZOLE 20 MG TABLET (FP) PO SCH (09:47)
[2019-04-02] MEDS: PRENATAL VITAMINS W/ FOLIC ACID TABLET (FP) PO SCH (09:47)
[2019-04-02] MEDS: BUDESONIDE/FORMETEROL FUMARATE 160/4.5 mcg INHALER IH SCH ×2 (09:48→21:56)
[2019-04-02] MEDS: THIAMINE HCL 100 MG TABLET (FP) PO SCH (21:57)
[2019-04-02] MEDS: MONTELUKAST NA 10 MG TABLET PO SCH (21:57)
[2019-04-02] MEDS: QUEtiapine FUMARATE 300 MG TABLET PO SCH (21:57)
[2019-04-03] MEDS: IBUPROFEN 400 MG TABLET (FP) PO PRN (06:22)
[2019-04-03] MEDS: INSULIN SLIDING SCALE (NOVOLOG) 1 VIAL SQ SCH ×2 (06:48→16:41)
[2019-04-03] MEDS ORDERED: PT OWN MED DRAWER 7, Y5N ONE (09:42)
[2019-04-03] MEDS: BUDESONIDE/FORMETEROL FUMARATE 160/4.5 mcg INHALER IH SCH ×2 (09:58→21:07)
[2019-04-03] MEDS: PRENATAL VITAMINS W/ FOLIC ACID TABLET (FP) PO SCH (09:59)
[2019-04-03] MEDS: PANTOPRAZOLE 20 MG TABLET (FP) PO SCH (09:59)
[2019-04-03] MEDS: LISINOPRIL 10 MG TABLET (FP) PO SCH (09:59)
--- NOTE | 2019-04-03 12:16 | PN ---
[facility] Progress Note (SOAP) Subjective: PT SCHEDULED TO BE DISCHARGED TOMORROW. PT REPORTS HE MET WITH [id number] RONNIE PAN FOR CD AFTERCARE PLANS.PT REPORTS HE HAS A PCP DR GABE GUILLORY AT [facility]. PT HAS OWN MEDS. ALERT O X 3. DENIES S/H/I. Vital Signs - 24 hr 04/03/19 04/03/19 04/03/19 00:30 03:30 07:21 Temperature 97.8 F Pulse Rate 88 Respiratory 18 18 20 Rate Blood Pressure 106/70 04/03/19 09:30 Temperature Pulse Rate 106 H Respiratory 18 Rate Blood Pressure 105/78 Laboratory Tests 03/24/19 03/25/19 03/25/19 16:45 06:39 16:50 POC Glucometer 313 161 312 03/26/19 03/26/19 03/27/19 05:57 16:42 05:51 POC Glucometer 203 254 199 03/27/19 03/28/19 03/28/19 16:47 06:24 16:35 POC Glucometer 277 192 326 03/29/19 03/29/19 03/30/19 06:03 16:52 06:03 POC Glucometer 186 240 151 03/30/19 03/30/19 03/31/19 16:52 22:04 06:16 POC Glucometer 154 190 151 03/31/19 04/01/19 04/01/19 16:48 06:49 16:44 POC Glucometer 252 204 152 04/02/19 04/02/19 04/03/19 06:13 16:48 06:22 POC Glucometer 156 189 245 PLAN:FOLLOW UP Objective: 04/03/19 23:41 Home Medications Medication Instructions Recorded Quetiapine Fumarate [Seroquel -] 300 mg PO BID #60 tablet 07/24/16 Albuterol Sulfate Inhaler - 2 inh IH Q4H PRN #1 inhaler 03/23/19 [Ventolin HFA Inhaler -] Budesonide/Formeterol Fumarate 1 puff IH BID #1 inhaler 03/23/19 [SYMBICORT 160/4.5mcg -] Lisinopril [Prinivil] 10 mg PO DAILY #30 tablet 03/23/19 Montelukast Na [Singulair -] 10 mg PO HS #30 tablet 03/23/19 metFORMIN HCL [Glucophage -] 850 mg PO BID #60 tablet 03/23/19 SYMBICORT 160/4.5mcg - 1 puff IN BID 03/24/19 Laboratory Tests 03/24/19 03/25/19 03/25/19 16:45 06:39 16:50 POC Glucometer 313 161 312 03/26/19 03/26/19 03/27/19 05:57 16:42 05:51 POC Glucometer 203 254 199 03/27/19 03/28/19 03/28/19 16:47 06:24 16:35 POC Glucometer 277 192 326 03/29/19 03/29/19 03/30/19 06:03 16:52 06:03 POC Glucometer 186 240 151 03/30/19 03/30/19 03/31/19 16:52 22:04 06:16 POC Glucometer 154 190 151 03/31/19 04/01/19 04/01/19 16:48 06:49 16:44 POC Glucometer 252 204 152 04/02/19 04/02/19 04/03/19 06:13 16:48 06:22 POC Glucometer 156 189 245 04/03/19 16:40 POC Glucometer 173 Vital Signs (72 hours) 04/01/19 04/01/19 04/01/19 00:30 03:30 06:57 Temperature 97.1 F L Pulse Rate 79 Respiratory 18 20 18 Rate Blood Pressure 110/82 04/01/19 04/02/19 04/02/19 09:53 03:30 07:19 Temperature 97.8 F Pulse Rate 88 79 Respiratory 20 18 Rate Blood Pressure 107/74 110/71 04/02/19 04/03/19 04/03/19 09:30 00:30 03:30 Temperature Pulse Rate 101 H Respiratory 18 18 18 Rate Blood Pressure 127/72 04/03/19 04/03/19 07:21 09:30 Temperature 97.8 F Pulse Rate 88 106 H Respiratory 20 18 Rate Blood Pressure 106/70 105/78 04/03/19 23:45 Assessment: 04/03/19 23:44 NAD MEDICALLY STABLE FOR DISCHARGE IN AM Plan: FOLLO UP WITH CD AFTERCARE RECOMMENDATIONS FOLLOW UP WITH PCP , DR GABE CUMMINGS
[2019-04-03] MEDS: MONTELUKAST NA 10 MG TABLET PO SCH (21:07)
[2019-04-03] MEDS: THIAMINE HCL 100 MG TABLET (FP) PO SCH (21:07)
[2019-04-03] MEDS: P-EPHED 60MG/TRIPROLIDI 2.5MG TABLET PO PRN (21:07)
[2019-04-03] MEDS: QUEtiapine FUMARATE 300 MG TABLET PO SCH (21:07)
[2019-04-03] MEDS: MELATONIN 5 MG TABLETS PO PRN (21:07)
[2019-04-04] MEDS: IBUPROFEN 400 MG TABLET (FP) PO PRN (05:56)
[2019-04-04] MEDS: P-EPHED 60MG/TRIPROLIDI 2.5MG TABLET PO PRN (05:57)
[2019-04-04] MEDS: INSULIN SLIDING SCALE (NOVOLOG) 1 VIAL SQ SCH (06:40)
[2019-04-04 07:24] VITALS: BP 129/76; PULSE 69; TEMP 97.1
[2019-04-04] MEDS: PRENATAL VITAMINS W/ FOLIC ACID TABLET (FP) PO SCH (09:03)
[2019-04-04] MEDS: BUDESONIDE/FORMETEROL FUMARATE 160/4.5 mcg INHALER IH SCH (09:03)
[2019-04-04] MEDS: LISINOPRIL 10 MG TABLET (FP) PO SCH (09:03)
[2019-04-04] MEDS: PANTOPRAZOLE 20 MG TABLET (FP) PO SCH (09:03)
--- NOTE | 2019-04-04 09:09 | PN ---
[facility] Progress Note Note: Psychiatric nurse practitioner note: Patient scheduled for discharge today. A 30 day prescription of Seroquel 300mg was electronically sent to patient's pharmacy at [facility], [address] [place] [address].
== END 2019-04-04 09:00 | disposition home or self-care (01) | DRG 772 ==
LOC: YASAS 12:32 → Y3W 12:33
PROVIDERS: ADMIT Neuromusculoskeletal Medicine & OMM; ATTEND Neuromusculoskeletal Medicine & OMM
PROC: HZ42ZZZ Group Counseling for Substance Abuse Treatment, Cognitive-Behavioral (ICD-10-PCS; principal; 2019-03-24)
DX: F10.230 Alcohol dependence with withdrawal, uncomplicated (principal); F14.20 Cocaine dependence, uncomplicated; F19.24 Other psychoactive substance dependence with psychoactive substance-induced mood disorder; F31.9 Bipolar disorder, unspecified; I10 Essential (primary) hypertension; J45.909 Unspecified asthma, uncomplicated; E11.9 Type 2 diabetes mellitus without complications; Z79.84 Long term (current) use of oral hypoglycemic drugs; G47.00 Insomnia, unspecified; B18.2 Chronic viral hepatitis C
CPT/HCPCS: 82962